=== PATIENT | male | born 1940 | race Caucasian/White ===

== ENCOUNTER 2018-07-28 12:40 | Observation (INO) | payer MEDICARE, OTHER ==
[~2018-07-28] VITALS: Ht 175.3 cm; Wt 95.5 kg
[~2018-07-28 12:40] MED LIST: AMLO-147 PO; ASPI-831 GTB; CARV25TA79 PO; CLOP75TA27 PO; DULO30CA47 PO; DUTA0.5C PO; FINA5TAB4 PO; FURO-110 PO; GLIP5TAB13 PO; ISOS30TA55 PO; LEVO25TA50 PO; LINA145C PO; LISI10TA2 PO; MELO7.5O PO; METF-849 PO; METO200T49 PO; ROSU20TA PO; SITA1TAB PO; TAMS0.4C2 PO; TERA10CA3 PO; TICA90TA PO
[2018-07-28] MEDS ORDERED: ONDANSETRON 4 MG INJ ONE (13:28)
[2018-07-28] MEDS ORDERED: morphine 4 MG/ML VIAL IV STA ×2 (13:28→15:04)
[2018-07-28] MEDS ORDERED: ONDANSETRON 4 MG INJ IV STA (13:28)
[2018-07-28] MEDS ORDERED: morphine 4 MG/ML VIAL ONE (13:29)
[2018-07-28] MEDS ORDERED: LISI-313 PO (14:01)
[2018-07-28] MEDS ORDERED: LORA10TA3 PO (14:01)
[2018-07-28] MEDS ORDERED: LEVO25TA50 PO (14:01)
[2018-07-28] MEDS ORDERED: SITA1TAB PO (14:01)
[2018-07-28] MEDS ORDERED: METO-336 PO (14:02)
[2018-07-28] MEDS ORDERED: MEMA10TA PO (14:02)
[2018-07-28] MEDS ORDERED: RANI150T5 PO (14:04)
[2018-07-28] MEDS ORDERED: EVOL140P SQ (14:04)
[2018-07-28] MEDS ORDERED: RANO10002 PO (14:05)
[2018-07-28] MEDS ORDERED: CALC1TAB93 PO (14:05)
[2018-07-28] MEDS ORDERED: OMEG1CAP2 PO (14:06)
[2018-07-28] MEDS ORDERED: NITR1PAT46 TD (14:07)
[2018-07-28] MEDS ORDERED: NITR0.4T39 SL (14:07)
[2018-07-28] MEDS ORDERED: ROSU10TA55 PO (14:08)
[2018-07-28] MEDS ORDERED: TOLT4CAP13 PO (14:09)
[2018-07-28] MEDS ORDERED: SPIR25TA PO (14:09)
[2018-07-28] MEDS ORDERED: CYCL1DRO BOTH EYES (14:19)
[2018-07-28] MEDS ORDERED: ASPI81TA52 PO (14:20)
[2018-07-28] MEDS ORDERED: AMLO-147 PO (14:20)
[2018-07-28] MEDS ORDERED: ATRO10DR BOTH EYES (14:22)
[2018-07-28] MEDS ORDERED: BENZ-5 PO (14:23)
[2018-07-28] MEDS ORDERED: TICA90TA PO (14:24)
[2018-07-28] MEDS ORDERED: LIPA1CAP45 PO (14:25)
[2018-07-28] MEDS ORDERED: CELE200C PO (14:25)
[2018-07-28] MEDS ORDERED: DOCU-103 PO (14:26)
[2018-07-28] MEDS ORDERED: EZET10TA31 PO (14:27)
[2018-07-28] MEDS ORDERED: ESOM40CA PO (14:27)
[2018-07-28] MEDS ORDERED: FURO-110 PO (14:28)
[2018-07-28] MEDS ORDERED: DAPA5TAB PO (14:28)
[2018-07-28] MEDS ORDERED: ISOS30TA67 PO (14:29)
[2018-07-28] MEDS ORDERED: GLIP5TAB13 PO (14:29)
[2018-07-28] MEDS ORDERED: ACETAMINOPHEN 325 MG TAB PO PRN ×2 (14:30→15:30)
[2018-07-28] MEDS ORDERED: AMIO200T4 PO (14:30)
[2018-07-28] MEDS ORDERED: POTA10TA37 PO (14:30)
[2018-07-28] MEDS ORDERED: ONDANSETRON 4 MG INJ IV PRN ×2 (14:30→15:30)
[2018-07-28] MEDS ORDERED: FINA5TAB4 PO (14:31)
[2018-07-28] MEDS ORDERED: TAMS0.4C2 PO (14:31)
--- NOTE | 2018-07-28 15:20 | HP ---
Date/Time of Note Date/Time of Note DATE: 07/28/18 TIME: 15:20 Assessment/Plan VTE Prophylaxis Pharmacological prophylaxis: heparin Lines/Catheters IV [facility]from [facility]): Saline Lock Assessment/Plan Hospital Course This is a 78-year-old male with comorbidities including CAD status post CABG with severe non-revascularizable CAD of the bypass grafts, ischemic cardiomyopathy, essential hypertension, pulmonary hypertension, dyslipidemia, diabetes mellitus type 2, prostatic hypertrophy, hypothyroidism, and COPD. The patient started having chest pain with the right upper extremity numbness with associated nausea. The patient will be admitted to inpatient setting. 1. Chest pain. -Will rule the patient out for ACS. -Trend troponins -Obtain 2D echocardiogram. -Obtain cardiology consult. 2. CAD with CABG with occluded grafts that are non-revascularizable. -Continue aggressive medical therapy. 3. Ischemic cardiomyopathy. Latest available 2D echocardiogram from [facility] showing ejection fraction of 25%. -Continue beta-blockers. -Hold MARÍA inhibitors because of worsening renal function. -Status post AICD placement. 4. Diabetes mellitus type 2. -Start the patient on sliding scale insulin along with pre-meal insulin and basal insulin. -Obtain hemoglobin A1c to evaluate the blood glucose control over the past few months. 5. COPD. -Continue the patient on inhaled bronchodilators. 6. Hypertension. -Resume antihypertensives. -Hold MARÍA inhibitors because of worsening renal function. 7. MICHAEL. -Nonoliguric. -Etiology unclear. -Hold nephrotoxic medications. 8. Prostatic hypertrophy. -Resume finasteride and tamsulosin. 9. Dyslipidemia. -Resume statins and Zetia. Plan: The patient will be admitted to inpatient telemetry floor. The patient will be started on a carbohydrate controlled diet. The patient will be started on DVT prophylaxis. The patient will remain a full code. Activities will be as tolerated. The rest of the patient's management will be based on the clinical course, inputs from consultants, and the results of diagnostic studies. Based on the patient's clinical presentation, he most probably requires at least 2 midnights stay for further management and evaluation of his clinical presentation. The patient was seen in collaboration with Dr. Agarwal. Result Diagram: 07/28/18 1252 07/28/18 1252 Results 24hrs Laboratory Tests Test 07/28/18 12:52 White Blood Count 6.6 # Red Blood Count 4.70 # Hemoglobin 13.7 #L Hematocrit 42.3 # Mean Corpuscular Volume 90.0 Mean Corpuscular Hemoglobin 29.1 Mean Corpuscular Hemoglobin Concent 32.4 Red Cell Distribution Width 15.0 H Platelet Count 153 Mean Platelet Volume 11.2 H Immature Granulocytes % 0.600 H Neutrophils % 72.6 Lymphocytes % 17.2 Monocytes % 7.9 Eosinophils % 0.9 Basophils % 0.8 Nucleated Red Blood Cells % 0.0 Immature Granulocytes # 0.040 H Neutrophils # 4.8 Lymphocytes # 1.1 Monocytes # 0.5 Eosinophils # 0.1 Basophils # 0.1 Nucleated Red Blood Cells # 0.0 Sodium Level 137 Potassium Level 4.4 Chloride Level 103 Carbon Dioxide Level 22 Anion Gap 12 Blood Urea Nitrogen 24 H Creatinine 1.53 H Est Glomerular Filtrat Rate mL/min Glucose Level 290 H Calcium Level 9.5 Troponin I < 0.012 HPI/ROS Admit Date/Time Admit Date/Time Hx of Present Illness This is a 78-year-old male with comorbidities including CAD status post CABG with severe non-revascularizable CAD of the bypass grafts, ischemic cardiomyopathy, essential hypertension, pulmonary hypertension, dyslipidemia, diabetes mellitus type 2, prostatic hypertrophy, hypothyroidism, and COPD. The patient started having chest pain with right upper extremity numbness with associated nausea. Therefore, the patient called the paramedics. The patient denied any dyspnea. The patient verbalized that he has been compliant with all his medications. The patient denied any cough. The patient denied any fevers or chills. The patient denied any syncope or presyncope. In the emergency room, the patient's troponins were negative. The patient was noticed to have a AK I with a BUN and creatinine of 24 and 1.53 respectively. The patient was given morphine for pain control in the emergency room. The patient was given aspirin by the paramedics. ROS Constitutional: no complaints Eyes: no complaints ENT: no complaints Respiratory: no complaints Cardiovascular: chest pain Gastrointestinal: nausea Genitourinary: no complaints Musculoskeletal: no complaints Skin: no complaints Neurologic: no complaints Endocrine: no complaints Lymphatic: no complaints Psychological: no complaints Immunologic: no complaints PMH/Family/Social Past Medical History 1. CAD. 2. Dyslipidemia. 3. Diabetes mellitus type 2. 4. Prostatic hypertrophy. 5. Hypothyroidism. 6. COPD. 7. Left eye blindness. 8. Obesity. Medications Current Medications Ondansetron HCl (Zofran Inj) 4 mg ER BRIDGE PRN IV NAUSEA AND/OR VOMITING; Start 07/28/18 at 14:30; Stop 07/29/18 at 14:29 Acetaminophen (Tylenol Tab) 650 mg ER BRIDGE PRN PO MILD PAIN(1-3)OR ELEVATED TEMP; Start 07/28/18 at 14:30; Stop 07/29/18 at 14:29 Coded Allergies: No Known Allergy (Unverified , 07/28/18) Past Surgical History Past Surgical Hx: coronary bypass surgery Social History Lives at home. Alcohol Use: none Smoking Status: Former smoker Drug Use: none Exam/Review of Systems Vital Signs Vitals Vital Signs Date Temp Pulse Resp B/P (MAP) Pulse Ox O2 O2 Flow FiO2 Time Delivery Rate 07/28/18 98.1 79 17 129/75 98 Nasal 2.0 14:59 (93) Cannula Exam Exam General: Adequately build 78 year-old male lying in bed in no apparent distress. HEENT: Normocephalic, atraumatic. Eyes: Anicteric sclerae, conjunctivae clear. ENT: Nasal septum midline, oral mucosa moist. Neck supple, JVD noticed. Respiratory: Bilaterally diminished breath sounds. No use of accessory muscles of respiration. Expiratory wheezing. Cardiovascular: S1, S2 heard. Regular rate and rhythm. Abdomen: Soft, nontender, and nondistended. Bowel sounds positive in all 4 quadrants. Genitourinary: Deferred. Extremities: No cyanosis, no clubbing, no edema. Peripheral pulses palpable. Neurologic: Cranial nerves II through XII grossly intact. The patient is awake, alert, and oriented. Skin: Normal skin turgor. No skin rashes. Additional Comments CXR IMPRESSION: Mild cardiomegaly with mild central pulmonary vascular congestion. Stable postsurgical changes of a CABG and left biventricular AICD. MAGY WATTS NP Jul 28, 2018 15:20
[2018-07-28] MEDS ORDERED: morphine 2 MG INJ IV PRN (15:30)
[2018-07-28] MEDS ORDERED: HYDROCODONE/APAP (5/325) TAB PO PRN (15:30)
[2018-07-28] MEDS ORDERED: NACL 0.9% 3 ML SYG IV SCH (15:30)
--- NOTE | 2018-07-28 15:57 | ERD ---
ER Documentation Chief Complaint Chief Complaint CHEST PAIN TODAY, NO SOB HPI Patient is a 78-year-old male with significant cardiac history who presents with chest pain. The symptoms started today and he went to an urgent care. He was brought in by ambulance. He came from the urgent care via ambulance. He was given aspirin and nitroglycerin. Pain went from an 8 out of 10 to a 6 out of 10. ROS All systems reviewed and are negative except as per history of present illness. Medications Home Meds Reported Medications Tamsulosin Hcl* (Tamsulosin Hcl*) 0.4 Mg Cap.er.24h, 0.4 MG PO HS, CAP 07/28/18 Finasteride* (Finasteride*) 5 Mg Tablet, 5 MG PO DAILY, TAB 07/28/18 Potassium Chloride* (K-Dur*) 10 Meq Tab.prt.sr, 10 MEQ PO DAILY, TAB 07/28/18 Amiodarone Hcl* (Amiodarone Hcl*) 200 Mg Tablet, 200 MG PO DAILY, #30 TAB 07/28/18 Isosorbide Mononitrate* (Isosorbide Mononitrate*) 30 Mg Tab.er.24h, 30 MG PO BID, TAB 07/28/18 Glipizide* (Glipizide*) 5 Mg Tablet, 5 MG PO BID, TAB 07/28/18 Furosemide* (Lasix*) 20 Mg Tablet, 20 MG PO DAILY, TAB 07/28/18 Dapagliflozin Propanediol (Farxiga) 5 Mg Tablet, 5 MG PO DAILY, #30 TAB 07/28/18 Ezetimibe* (Zetia*) 10 Mg Tablet, 10 MG PO HS, TAB 07/28/18 Esomeprazole Mag Trihydrate (Nexium) 40 Mg Capsule.dr, 40 MG PO DAILY, #30 CAP 07/28/18 Docusate Sodium (Docusil) 100 Mg Capsule, 100 MG PO BID, #60 CAP 07/28/18 Tgwwkg-Nevoyimm-Sjwzcxd* (Alida MOLINA* 36,000) 36,000 L-114,000-180,000 Unit Capsule., 1 CAP PO WITH MEALS, CAP 07/28/18 Celecoxib* (Celebrex*) 200 Mg Capsule, 200 MG PO DAILY, CAP 07/28/18 Ticagrelor* (Brilinta*) 90 Mg Tablet, 90 MG PO Q12, TAB 07/28/18 Benzonatate* (Benzonatate*) 100 Mg Capsule, 100 MG PO TID PRN for COUGH, CAP 07/28/18 Atropine Sulfate/0.9 %Sod Chlr (Atropine 0.01%-Ns Eye Drops) 10 Ml Drops, 1 DRP BOTH EYES BID, BOTTLE 07/28/18 Aspirin (Low Dose Aspirin) 81 Mg Tablet.dr, 81 MG PO DAILY, #30 TAB 07/28/18 Amlodipine Besylate* (Amlodipine Besylate*) 10 Mg Tablet, 10 MG PO DAILY, #30 TAB 07/28/18 Cyclosporine (RESTASIS) 1 Each Droperette, 1 DROP BOTH EYES Q12, #1 BOX 07/28/18 Tolterodine Tartrate* (Tolterodine Tartrate* ER) 4 Mg Cap.er.24h, 4 MG PO DAILY, #30 CAP 07/28/18 Spironolactone* (Aldactone*) 25 Mg Tablet, 25 MG PO DAILY, #30 TAB 07/28/18 Rosuvastatin Calcium* (Crestor*) 10 Mg Tablet, 10 MG PO QHS, #30 TAB 07/28/18 Nitroglycerin* (Nitrostat*) 0.4 Mg Tab.subl, 0.4 MG SL Q5MIN PRN for CHEST PAIN, BOTTLE 07/28/18 Nitroglycerin* (Nitroglycerin* Patch) 0.1 mg/hr Patch, 1 PATCH TD DAILY, PATCH 12 HOURS ON 12 HOURS OFF 07/28/18 [place]-3 Acid Ethyl Esters (Lovaza) 1 Gm Capsule, 2 GM PO BID, CAP 07/28/18 Calcium Carbonate/Vitamin D3 (OYSTER SHELL 500 MG + VIT D TB) 1 Each Tablet, 1 EACH PO BID, TAB 07/28/18 Ranolazine* (Ranexa*) 1,000 Mg Tab.sr.12h, 1000 MG PO Q12, TAB 07/28/18 Ranitidine Hcl* (Ranitidine Hcl*) 150 Mg Tablet, 150 MG PO HS, #30 TAB 07/28/18 Evolocumab (Repatha Sureclick) 140 Mg/1 Ml Pen.injctr, 140 MG SQ EVERY 14 DAYS 07/28/18 Metoprolol Succinate* (Toprol XL*) 100 Mg Tab.sr.24h, 100 MG PO DAILY, #30 TAB 07/28/18 Memantine* (Namenda*) 10 Mg Tablet, 10 MG PO BID, #60 TAB 07/28/18 Loratadine* (Loratadine*) 10 Mg Tablet, 10 MG PO DAILY, #30 TAB 07/28/18 Lisinopril* (Lisinopril*) 5 Mg Tablet, 5 MG PO DAILY, #30 TAB 07/28/18 Levothyroxine Sodium* (Levoxyl*) 25 Mcg Tablet, 25 MCG PO BEFORE BREAKFAST, #30 TAB 07/28/18 Sitagliptin Phos/Metformin HCl (Janumet 50-500 mg Tablet) 1 Each Tablet, 1 EACH PO BID, TAB 07/28/18 Discontinued Reported Medications Linaclotide (LINZESS) 145 Mcg Capsule, 145 MCG PO DAILY, #30 CAP 03/21/16 Finasteride* (Finasteride*) 5 Mg Tablet, 5 MG PO DAILY, TAB 03/21/16 Duloxetine Hcl* (Duloxetine Hcl*) 30 Mg Capsule.dr, 30 MG PO DAILY, #30 CAP 03/21/16 Levothyroxine Sodium* (Levoxyl*) 25 Mcg Tablet, 25 MCG PO BEFORE BREAKFAST, #30 TAB 03/21/16 Glipizide* (Glipizide*) 5 Mg Tablet, 5 MG PO BID, TAB 03/21/16 Ticagrelor* (Brilinta*) 90 Mg Tablet, 90 MG PO Q12, TAB 03/21/16 Terazosin Hcl* (Terazosin Hcl*) 10 Mg Capsule, 10 MG PO HS, CAP 03/21/16 Lisinopril* (Lisinopril*) 10 Mg Tablet, 10 MG PO DAILY, #30 TAB 03/21/16 Furosemide* (Lasix*) 20 Mg Tablet, 20 MG PO DAILY, TAB 03/21/16 Meloxicam* (Meloxicam*) 7.5 Mg/5 Ml Oral.susp, 15 MG PO DAILY, #300 ML 03/21/16 Carvedilol* (Carvedilol*) 25 Mg Tablet, 25 MG PO BID, #60 TAB 03/21/16 Rosuvastatin Calcium* (Crestor*) 20 Mg Tablet, 20 MG PO QHS, #30 TAB 03/21/16 Sitagliptin Phos/Metformin HCl (Janumet 50-500 mg Tablet) 1 Each Tablet, 1 EACH PO BID, TAB 03/21/16 Metoprolol Succinate* (Toprol XL*) 200 Mg Tab.sr.24h, 200 MG PO DAILY, #30 TAB 03/21/16 Amlodipine Besylate* (Amlodipine Besylate*) 10 Mg Tablet, 10 MG PO DAILY, #30 TAB 03/21/16 Isosorbide Mononitrate (Isosorbide Mononitrate) 30 Mg Tab.sr.24h, 30 MG PO BID 11/27/12 Tamsulosin Hcl* (Tamsulosin Hcl*) 0.4 Mg Cap.er.24h, 0.4 MG PO DAILY 11/27/12 Dutasteride* (Avodart*) 0.5 Mg Capsule, 0.5 MG PO DAILY 11/27/12 Aspirin (Aspirin) 81 Mg Chew, 81 MG GTB 11/27/12 Clopidogrel Bisulfate (Clopidogrel) 75 Mg Tablet, 75 MG PO DAILY 11/27/12 Metformin* (Glucophage*) 500 Mg Tab, 500 MG PO 11/27/12 Allergies Allergies: Coded Allergies: No Known Allergy (Unverified , 07/28/18) PMhx/Soc History of Surgery: Yes (CABG, Heart Cath x7, left eye cataract sx) Anesthesia Reaction: No Hx Neurological Disorder: No Hx Respiratory Disorders: Yes (Bronchitis, PNA) Hx Cardiac Disorders: Yes (HTN, CAD, Cardiomegaly) Hx Psychiatric Problems: No Hx Miscellaneous Medical Probl: No Hx Alcohol Use: Yes (socially) Hx Substance Use: No Hx Tobacco Use: No Smoking Status: Never smoker FmHx Family History: coronary disease Physical Exam Vitals Vital Signs Date Temp Pulse Resp B/P (MAP) Pulse Ox O2 O2 Flow FiO2 Time Delivery Rate 07/28/18 98.1 79 17 129/75 98 Nasal 2.0 14:59 (93) Cannula 07/28/18 98.3 61 17 127/91 97 Room Air 13:24 (103) 07/28/18 Nasal 2 12:54 Cannula 07/28/18 98.3 90 17 125/82 97 12:49 (96) Physical Exam Const: No acute distress Head: Atraumatic Eyes: Normal Conjunctiva ENT: Normal External Ears, Nose and Mouth. Neck: Full range of motion. No meningismus. Resp: Clear to auscultation bilaterally Cardio: Regular rate and rhythm, no murmurs Abd: Soft, non tender, non distended. Normal bowel sounds Skin: No petechiae or rashes Back: No midline or flank tenderness Ext: No cyanosis, or edema Neur: Awake and alert Psych: Normal Mood and Affect Result Diagram: 07/28/18 1252 07/28/18 1252 Results 24 hrs Laboratory Tests Test 07/28/18 12:52 White Blood Count 6.6 10^3/ul Red Blood Count 4.70 10^6/ul Hemoglobin 13.7 g/dl Hematocrit 42.3 % Mean Corpuscular Volume 90.0 fl Mean Corpuscular Hemoglobin 29.1 pg Mean Corpuscular Hemoglobin Concent 32.4 g/dl Red Cell Distribution Width 15.0 % Platelet Count 153 10^3/UL Mean Platelet Volume 11.2 fl Immature Granulocytes % 0.600 % Neutrophils % 72.6 % Lymphocytes % 17.2 % Monocytes % 7.9 % Eosinophils % 0.9 % Basophils % 0.8 % Nucleated Red Blood Cells % 0.0 /100WBC Immature Granulocytes # 0.040 10^3/ul Neutrophils # 4.8 10^3/ul Lymphocytes # 1.1 10^3/ul Monocytes # 0.5 10^3/ul Eosinophils # 0.1 10^3/ul Basophils # 0.1 10^3/ul Nucleated Red Blood Cells # 0.0 10^3/ul Sodium Level 137 mmol/L Potassium Level 4.4 mmol/L Chloride Level 103 mmol/L Carbon Dioxide Level 22 mmol/L Anion Gap 12 Blood Urea Nitrogen 24 mg/dl Creatinine 1.53 mg/dl Est Glomerular Filtrat Rate mL/min mL/min Glucose Level 290 mg/dl Hemoglobin A1c 8.7 % Calcium Level 9.5 mg/dl Troponin I < 0.012 ng/ml Current Medications Medications Dose Sig/Rah Start Time Status Last (Trade) Ordered Route PRN Stop Time Admin Dose Reason Admin Morphine 4 mg ONCE STAT 07/28/18 DC 07/28/18 Sulfate IV 13:28 13:33 (morphine) 07/28/18 13:29 Ondansetron 4 mg ONCE STAT 07/28/18 DC 07/28/18 HCl (Zofran IV 13:28 13:33 Inj) 07/28/18 13:29 Ondansetron 4 mg STK-MED 07/28/18 DC HCl (Zofran ONCE .ROUTE 13:28 Inj) 07/28/18 13:29 Morphine 4 mg STK-MED 07/28/18 DC Sulfate ONCE .ROUTE 13:29 (morphine) 07/28/18 13:30 Ondansetron 4 mg ER BRIDGE 07/28/18 DC HCl (Zofran PRN IV 14:30 Inj) NAUSEA AND/OR 07/28/18 15:40 VOMITING 650 mg ER BRIDGE 07/28/18 DC Acetaminophen PRN PO MILD 14:30 (Tylenol PAIN(1-3)OR 07/28/18 15:40 Tab) ELEVATED TEMP Morphine 4 mg ONCE STAT 07/28/18 DC 07/28/18 Sulfate IV 15:04 15:34 (morphine) 07/28/18 15:05 IV Flush 3 ml PER 07/28/18 (NS 3 ml) PROTOCOL IV 15:30 Ondansetron 4 mg Q6H PRN 07/28/18 HCl (Zofran IV NAUSEA 15:30 Inj) AND/OR VOMITING Aspirin 81 mg DAILY PO 07/29/18 (Aspirin) 09:00 650 mg Q6H PRN 07/28/18 Acetaminophen PO PAIN 15:30 (Tylenol LEVEL 1-3 OR Tab) FEVER 1 tab Q6H PRN 07/28/18 Acetaminophen PO PAIN 15:30 / LEVEL 4-6 Hydrocodone Bitart ([place] (5/325)) Morphine 2 mg Q4H PRN 07/28/18 Sulfate IV PAIN 15:30 (morphine) LEVEL 7-10 Heparin 5,000 unit Q8 SC 07/28/18 Sodium 22:00 (Porcine) (Heparin (5000 Units/1ml)) Amiodarone 200 mg DAILY PO 07/29/18 HCl 09:00 (Cordarone) Amlodipine 10 mg DAILY PO 07/29/18 Besylate 09:00 (Norvasc) Aspirin 81 mg DAILY PO 07/29/18 UNV (Halfprin) 09:00 1 drop Q12 BOTH 07/28/18 Cyclosporine EYES 21:00 (Restasis) Docusate 100 mg BID PO 07/28/18 Sodium 21:00 (Colace) EZETIMIBE 10 mg HS PO 07/28/18 (Zetia) 21:00 Finasteride 5 mg DAILY PO 07/29/18 (Proscar) 09:00 Isosorbide 30 mg BID PO 07/28/18 Mononitrate 21:00 (Imdur) 25 mcg BEFORE 07/29/18 Levothyroxine BREAKFAST 07:00 Sodium PO (Synthroid) Lisinopril 5 mg DAILY PO 07/29/18 DC (Zestril) 09:00 07/29/18 09:00 Loratadine 10 mg DAILY PO 07/29/18 (Claritin) 09:00 Memantine 10 mg BID PO 07/28/18 (Namenda) 21:00 Metoprolol 100 mg DAILY PO 07/29/18 Succinate 09:00 (Toprol Xl) Ranolazine 1,000 mg Q12 PO 07/28/18 (Ranexa) 21:00 Tamsulosin 0.4 mg HS PO 07/28/18 HCl 21:00 (Flomax) Ticagrelor 90 mg Q12 PO 07/28/18 (Brilinta) 21:00 Tolterodine 4 mg DAILY PO 07/29/18 Tartrate 09:00 (Detrol La) Discontinue ONCE ONCE 07/28/18 DC Miscellaneous current oral XX 16:00 sulfonylur... 07/28/18 16:01 Information (* Miscellaneous Pharmacy Order) Insulin 14 units DAILY@199907/28/18 Glargine SC 20:00 (Lantus) Insulin 5 unit WITH MEALS 07/28/18 Aspart SC 18:00 (Novolog Insulin Pen) ONCE ONCE 07/28/18 DC Miscellaneous HYPOGLYCEMIA XX 16:00 PROTOCOL 07/28/18 16:01 Information w... (* Miscellaneous Pharmacy Order) Insulin NOVOLOG WITH MEALS 07/28/18 Aspart *MILD* BEDTIME SC 18:00 (Novolog ALGORITHM Insulin Pen) Albuterol/ 3 ml Q6HWA RESP 07/28/18 Ipratropium THERAPY HHN 20:00 (Duoneb) Albuterol/ 3 ml Q2H RESP 07/28/18 Ipratropium THERAPY PRN 16:00 (Duoneb) HHN SHORTNESS OF BREATH 1 ea NOTE XX 07/28/18 Miscellaneous 16:00 Information Glucose 15 gm Q15M PRN 07/28/18 (Glutose) PO DECREASED 16:00 GLUCOSE Glucose 22.5 gm Q15M PRN 07/28/18 (Glutose) PO DECREASED 16:00 GLUCOSE Dextrose 25 ml Q15M PRN 07/28/18 (D50w IV DECREASED 16:00 Syringe) GLUCOSE Dextrose 50 ml Q15M PRN 07/28/18 (D50w IV DECREASED 16:00 Syringe) GLUCOSE Glucagon 1 mg Q15M PRN 07/28/18 (Glucagen) IM DECREASED 16:00 GLUCOSE Glucose 15 gm Q15M PRN 07/28/18 (Glutose) BUCCAL 16:00 DECREASED GLUCOSE Procedures/MDM EKG read by me: Rate/Rhythm: Paced rhythm at a rate of 85 Intervals: Normal Impression: Paced rhythm with negative Sgarbossa criteria Chest x-ray read by radiology. Patient is a 78-year-old male with significant cardiac history who presents with chest pain. I am concerned for possible acute coronary syndrome. I doubt pneumonia, pneumothorax, pulmonary embolism, or aortic dissection. The patient will be admitted to the care of Dr. Agarwal from the panel team. The patient will be admitted to a telemetry observation bed. Departure Diagnosis: Primary Impression: Chest pain Chest pain type: unspecified Qualified Codes: R07.9 - Chest pain, unspecified Condition: RAE Mcnair MD Jul 28, 2018 15:57
[2018-07-28] MEDS ORDERED: DEXTROSE 50% 50 ML SYRINGE IV PRN ×2 (16:00)
[2018-07-28] MEDS ORDERED: GLUCAGON 1 MG INJ IM PRN (16:00)
[2018-07-28] MEDS ORDERED: GLUCOSE GEL 15 GRAM TUBE BUCCAL PRN (16:00)
[2018-07-28] MEDS ORDERED: GLUCOSE GEL 15 GRAM TUBE PO PRN ×2 (16:00)
[2018-07-28] MEDS ORDERED: ALBUTEROL/IPRATROPIUM (NEB) 3 ML AMP HHN PRN (16:00)
[2018-07-28 17:45] VITALS: PULSE 81
[2018-07-28 17:56] VITALS: Ht 175.3 cm; Wt 95.5 kg
[2018-07-28] MEDS: INSULIN ASPART [NOVOLOG] 3 ML PEN SC SCH ×3 (18:06→23:33)
[2018-07-28 18:12] VITALS: BP 112/71; PULSE 81; RESP 18
[2018-07-28] MEDS: morphine 4 MG/ML VIAL IV PRN (19:57)
[2018-07-28 20:00] VITALS: PULSE 81
[2018-07-28] MEDS ORDERED: INSULIN GLARGINE [LANTus] (100 UNITS/ML) SYG SC SCH (20:00)
[2018-07-28 20:06] VITALS: BP 135/78; PULSE 82; RESP 18
[2018-07-28] MEDS ORDERED: TAMSULOSIN (SR) 0.4 MG CAP PO SCH (21:00)
[2018-07-28] MEDS: RANOLAZINE (SR) 500 MG TAB PO SCH ×2 (21:00→21:41)
[2018-07-28] MEDS: EZETIMIBE 10 MG TAB PO SCH ×2 (21:00→21:40)
[2018-07-28] MEDS: DOCUSATE SODIUM 100 MG CAP PO SCH (21:40)
[2018-07-28] MEDS: MEMANTINE 10 MG TAB PO SCH (21:41)
[2018-07-28] MEDS: ISOSORBIDE MONONITRATE(SR)30 MG TAB PO SCH (21:41)
[2018-07-28] MEDS: TICAGRELOR 90 MG TABLET PO SCH (21:46)
[2018-07-28] MEDS ORDERED: HEPARIN 5,000 UNIT/1 ML VIAL SC SCH (22:00)
[2018-07-28] MEDS: CYCLOSPORINE 0.05% OPH DROPERETTE BOTH EYES SCH (22:21)
--- NOTE | 2018-07-28 22:34 | NUR ---
Pharmacy had delivered the Lantus and Restasis I had ordered but did not bring Novolog insulin. I called and spoke with [facility] and he said they would bring it up.
[2018-07-28] MEDS: ALBUTEROL/IPRATROPIUM (NEB) 3 ML AMP HHN SCH (22:50)
[2018-07-28 23:42] VITALS: BP 119/68; PULSE 79; RESP 18
[2018-07-29] VITALS: PULSE 76
[2018-07-29] MEDS ORDERED: ENOXAPARIN 100 MG/ML SYG SC SCH (02:30)
[2018-07-29 04:00] VITALS: PULSE 74
[2018-07-29 04:07] VITALS: BP 100/55; PULSE 71; RESP 18
[2018-07-29] MEDS ORDERED: LEVOTHYROXINE 25 MCG TAB PO SCH (07:00)
[2018-07-29 07:17] VITALS: BP 103/57; PULSE 77; RESP 16
--- NOTE | 2018-07-29 07:21 | NUR ---
EOSS: Third and fourth troponin positive and trending up. Patient denies any chest pain. No SOB. Notified Dr. Jarrett and change Heparin SC to Lovenox 95 mg SC and given. Remains on Paced, AV paced, underlying SR with PVC's. Endorsed to day nurse.
[2018-07-29] MEDS: INSULIN ASPART [NOVOLOG] 3 ML PEN SC SCH ×2 (07:35→07:36)
[2018-07-29 08:00] VITALS: PULSE 76
[2018-07-29] MEDS: CYCLOSPORINE 0.05% OPH DROPERETTE BOTH EYES SCH (08:31)
[2018-07-29] MEDS: DOCUSATE SODIUM 100 MG CAP PO SCH (08:31)
[2018-07-29] MEDS: TICAGRELOR 90 MG TABLET PO SCH (08:33)
[2018-07-29] MEDS: MEMANTINE 10 MG TAB PO SCH (08:33)
[2018-07-29] MEDS: ISOSORBIDE MONONITRATE(SR)30 MG TAB PO SCH (08:34)
[2018-07-29] MEDS: RANOLAZINE (SR) 500 MG TAB PO SCH (08:41)
[2018-07-29] MEDS: ALBUTEROL/IPRATROPIUM (NEB) 3 ML AMP HHN SCH (08:44)
[2018-07-29] MEDS ORDERED: AMLODIPINE 10 MG TAB PO SCH (09:00)
[2018-07-29] MEDS ORDERED: ASPIRIN (EC) 81 MG TAB PO SCH (09:00)
[2018-07-29] MEDS ORDERED: AMIODARONE 200 MG TAB PO SCH (09:00)
[2018-07-29] MEDS ORDERED: TOLTERODINE (SR) 4 MG CAP PO SCH (09:00)
[2018-07-29] MEDS ORDERED: ASPIRIN 81 MG TAB PO SCH (09:00)
[2018-07-29] MEDS ORDERED: LORATADINE 10 MG TAB PO SCH (09:00)
[2018-07-29] MEDS ORDERED: LISINOPRIL 5 MG TAB PO SCH (09:00)
[2018-07-29] MEDS ORDERED: METOPROLOL (XL) 100 MG TAB PO SCH (09:00)
[2018-07-29] MEDS ORDERED: FINASTERIDE 5 MG TAB PO SCH (09:00)
--- NOTE | 2018-07-29 09:15 | DS ---
Date/Time of Note Date/Time of Note DATE: 07/29/18 TIME: 09:12 Discharge Summary Admission/Discharge Info Admit Date/Time Jul 28, 2018 at 14:22 Discharge Date/Time Discharge Diagnosis 1. NSTEMI. 2. History of CAD with CABG with occluded grafts that are non-revascularizable. 3. Ischemic cardiomyopathy. 4. Diabetes mellitus type 2. 5. COPD. 6. Hypertension. 7. Acute kidney injury. 8. Prostatic hypertrophy. 9. Dyslipidemia. 10. Obesity. Patient Condition: Critical Consults 1. Bi Arellano MD, Cardiology. Procedures CXR IMPRESSION: Mild cardiomegaly with mild central pulmonary vascular congestion. Stable postsurgical changes of a CABG and left biventricular AICD. Hx of Present Illness This is a 78-year-old male with comorbidities including CAD status post CABG with severe non-revascularizable CAD of the bypass grafts, ischemic cardiomyopathy, essential hypertension, pulmonary hypertension, dyslipidemia, diabetes mellitus type 2, prostatic hypertrophy, hypothyroidism, and COPD. The patient started having chest pain with right upper extremity numbness with associated nausea. Therefore, the patient called the paramedics. The patient denied any dyspnea. The patient verbalized that he has been compliant with all his medications. The patient denied any cough. The patient denied any fevers or chills. The patient denied any syncope or presyncope. In the emergency room, the patient's troponins were negative. The patient was noticed to have a AK I with a BUN and creatinine of 24 and 1.53 respectively. The patient was given morphine for pain control in the emergency room. The patient was given aspirin by the paramedics. Hospital Course The patient was admitted to inpatient setting. Serial troponins were ordered. The patient's outpatient casino worker was informed about the patient's admission. A 2D echocardiogram was ordered. The patient's initial troponin was within normal limits. The patient started having elevation in troponin from the midnight of 07/29/2018 with a troponin as high as 1.25 on the morning of 07/29. Therefore, the patient was given a single dose of therapeutic Lovenox. The patient's casino worker was informed about the elevation in troponin. After conversation with the patient's casino worker, he wanted the patient to be transferred to [facility] for urgent left heart catheterization as the Loan Collector at [facility] is not fully functional. Therefore, arrangements were made to transfer this patient to [facility] at the earliest. The patient was kept n.p.o. after breakfast on 07/29/2018. The patient had underlying acute kidney injury although he had a normal renal function on his admission to [facility] in 2015. The patient's baseline creatinine is unknown at this time. The patient's MARÍA inhibitors were put on hold from the day of admission. The patient will be getting a single dose of p.o. Mucomyst 1200 mg before he will be transferred in anticipation for use of dye for left heart catheterization to prevent further kidney damage. The patient's chronic problems include ischemic cardiomyopathy with latest ejection fraction from the 2D echocardiogram done at [facility] in 2015 showing 25%. The patient was continued on beta-blockers. The patient also has history of cardiac arrhythmias. Therefore, the patient was maintained on amiodarone. MARÍA inhibitors were put on hold because of worsening renal function. The patient has underlying diabetes mellitus type 2. The patient's hemoglobin A1c was found to be 8.7. He was maintained on sliding scale insulin along with pre-meal insulin and basal insulin. The patient has underlying COPD. He was maintained on inhaled bronchodilators as he had evidence of some bronchospasms. He was maintained on beta-blockers for his hypertension. The patient has underlying prostatic hypertrophy. He was maintained on finasteride and tamsulosin. He was maintained on statins and Zetia for his underlying dyslipidemia and CAD. The patient had a stable hospital course. The patient needs urgent left heart catheterization and he needs to be transferred to [facility]. Therefore, arrangements are made for transferring this patient with ACLS and ICU team. The patient was informed about the plan of care. Approximately 50 Minutes was spent on coordinating discharge/transfer on this patient that included talking to the patient's casino worker and coordinating the care with the health care team. The patient was seen in collaboration with Dr. Agarwal. Home Meds Reported Medications Tamsulosin Hcl* (Tamsulosin Hcl*) 0.4 Mg Cap.er.24h, 0.4 MG PO HS, CAP 07/28/18 Finasteride* (Finasteride*) 5 Mg Tablet, 5 MG PO DAILY, TAB 07/28/18 Potassium Chloride* (K-Dur*) 10 Meq Tab.prt.sr, 10 MEQ PO DAILY, TAB 07/28/18 Amiodarone Hcl* (Amiodarone Hcl*) 200 Mg Tablet, 200 MG PO DAILY, #30 TAB 07/28/18 Isosorbide Mononitrate* (Isosorbide Mononitrate*) 30 Mg Tab.er.24h, 30 MG PO BID, TAB 07/28/18 Glipizide* (Glipizide*) 5 Mg Tablet, 5 MG PO BID, TAB 07/28/18 Furosemide* (Lasix*) 20 Mg Tablet, 20 MG PO DAILY, TAB 07/28/18 Dapagliflozin Propanediol (Farxiga) 5 Mg Tablet, 5 MG PO DAILY, #30 TAB 07/28/18 Ezetimibe* (Zetia*) 10 Mg Tablet, 10 MG PO HS, TAB 07/28/18 Esomeprazole Mag Trihydrate (Nexium) 40 Mg Capsule.dr, 40 MG PO DAILY, #30 CAP 07/28/18 Docusate Sodium (Docusil) 100 Mg Capsule, 100 MG PO BID, #60 CAP 07/28/18 Wjoyli-Ovucspwv-Wxuvmfy* (Alida MOLINA* 36,000) 36,000 L-114,000-180,000 Unit Capsule.dr, 1 CAP PO WITH MEALS, CAP 07/28/18 Celecoxib* (Celebrex*) 200 Mg Capsule, 200 MG PO DAILY, CAP 07/28/18 Ticagrelor* (Brilinta*) 90 Mg Tablet, 90 MG PO Q12, TAB 07/28/18 Benzonatate* (Benzonatate*) 100 Mg Capsule, 100 MG PO TID PRN for COUGH, CAP 07/28/18 Atropine Sulfate/0.9 %Sod Chlr (Atropine 0.01%-Ns Eye Drops) 10 Ml Drops, 1 DRP BOTH EYES BID, BOTTLE 07/28/18 Aspirin (Low Dose Aspirin) 81 Mg Tablet.dr, 81 MG PO DAILY, #30 TAB 07/28/18 Amlodipine Besylate* (Amlodipine Besylate*) 10 Mg Tablet, 10 MG PO DAILY, #30 TAB 07/28/18 Cyclosporine (RESTASIS) 1 Each Droperette, 1 DROP BOTH EYES Q12, #1 BOX 07/28/18 Tolterodine Tartrate* (Tolterodine Tartrate* ER) 4 Mg Cap.er.24h, 4 MG PO DAILY, #30 CAP 07/28/18 Spironolactone* (Aldactone*) 25 Mg Tablet, 25 MG PO DAILY, #30 TAB 07/28/18 Rosuvastatin Calcium* (Crestor*) 10 Mg Tablet, 10 MG PO QHS, #30 TAB 07/28/18 Nitroglycerin* (Nitrostat*) 0.4 Mg Tab.subl, 0.4 MG SL Q5MIN PRN for CHEST PAIN, BOTTLE 07/28/18 Nitroglycerin* (Nitroglycerin* Patch) 0.1 mg/hr Patch, 1 PATCH TD DAILY, PATCH 12 HOURS ON 12 HOURS OFF 07/28/18 Mullins-3 Acid Ethyl Esters (Lovaza) 1 Gm Capsule, 2 GM PO BID, CAP 07/28/18 Calcium Carbonate/Vitamin D3 (OYSTER SHELL 500 MG + VIT D TB) 1 Each Tablet, 1 EACH PO BID, TAB 07/28/18 Ranolazine* (Ranexa*) 1,000 Mg Tab.sr.12h, 1000 MG PO Q12, TAB 07/28/18 Ranitidine Hcl* (Ranitidine Hcl*) 150 Mg Tablet, 150 MG PO HS, #30 TAB 07/28/18 Evolocumab (Repatha Sureclick) 140 Mg/1 Ml Pen.injctr, 140 MG SQ EVERY 14 DAYS 07/28/18 Metoprolol Succinate* (Toprol XL*) 100 Mg Tab.sr.24h, 100 MG PO DAILY, #30 TAB 07/28/18 Memantine* (Namenda*) 10 Mg Tablet, 10 MG PO BID, #60 TAB 07/28/18 Loratadine* (Loratadine*) 10 Mg Tablet, 10 MG PO DAILY, #30 TAB 07/28/18 Lisinopril* (Lisinopril*) 5 Mg Tablet, 5 MG PO DAILY, #30 TAB 07/28/18 Levothyroxine Sodium* (Levoxyl*) 25 Mcg Tablet, 25 MCG PO BEFORE BREAKFAST, #30 TAB 07/28/18 Sitagliptin Phos/Metformin HCl (Janumet 50-500 mg Tablet) 1 Each Tablet, 1 EACH PO BID, TAB 07/28/18 Discontinued Reported Medications Linaclotide (LINZESS) 145 Mcg Capsule, 145 MCG PO DAILY, #30 CAP 03/21/16 Finasteride* (Finasteride*) 5 Mg Tablet, 5 MG PO DAILY, TAB 03/21/16 Duloxetine Hcl* (Duloxetine Hcl*) 30 Mg Capsule.dr, 30 MG PO DAILY, #30 CAP 03/21/16 Levothyroxine Sodium* (Levoxyl*) 25 Mcg Tablet, 25 MCG PO BEFORE BREAKFAST, #30 TAB 03/21/16 Glipizide* (Glipizide*) 5 Mg Tablet, 5 MG PO BID, TAB 03/21/16 Ticagrelor* (Brilinta*) 90 Mg Tablet, 90 MG PO Q12, TAB 03/21/16 Terazosin Hcl* (Terazosin Hcl*) 10 Mg Capsule, 10 MG PO HS, CAP 03/21/16 Lisinopril* (Lisinopril*) 10 Mg Tablet, 10 MG PO DAILY, #30 TAB 03/21/16 Furosemide* (Lasix*) 20 Mg Tablet, 20 MG PO DAILY, TAB 03/21/16 Meloxicam* (Meloxicam*) 7.5 Mg/5 Ml Oral.susp, 15 MG PO DAILY, #300 ML 03/21/16 Carvedilol* (Carvedilol*) 25 Mg Tablet, 25 MG PO BID, #60 TAB 03/21/16 Rosuvastatin Calcium* (Crestor*) 20 Mg Tablet, 20 MG PO QHS, #30 TAB 03/21/16 Sitagliptin Phos/Metformin HCl (Janumet 50-500 mg Tablet) 1 Each Tablet, 1 EACH PO BID, TAB 03/21/16 Metoprolol Succinate* (Toprol XL*) 200 Mg Tab.sr.24h, 200 MG PO DAILY, #30 TAB 03/21/16 Amlodipine Besylate* (Amlodipine Besylate*) 10 Mg Tablet, 10 MG PO DAILY, #30 TAB 03/21/16 Isosorbide Mononitrate (Isosorbide Mononitrate) 30 Mg Tab.sr.24h, 30 MG PO BID 11/27/12 Tamsulosin Hcl* (Tamsulosin Hcl*) 0.4 Mg Cap.er.24h, 0.4 MG PO DAILY 11/27/12 Dutasteride* (Avodart*) 0.5 Mg Capsule, 0.5 MG PO DAILY 11/27/12 Aspirin (Aspirin) 81 Mg Chew, 81 MG GTB 11/27/12 Clopidogrel Bisulfate (Clopidogrel) 75 Mg Tablet, 75 MG PO DAILY 11/27/12 Metformin* (Glucophage*) 500 Mg Tab, 500 MG PO 11/27/12 Follow-up Plan The patient being transferred to [facility] for left heart catheterizati on. Primary Care Provider Not On Staff Doctor Time spent on discharge: > 30 minutes Pending Labs Laboratory Tests Test 07/28/18 12:52 07/28/18 18:00 07/28/18 18:36 07/28/18 21:55 White Blood 6.6 Count 10^3/ul (4.8-10 .8) Red Blood 4.70 Count 10^6/ul (4.70-6 .10) Hemoglobin 13.7 g/dl (14.0-18.0 ) Hematocrit 42.3 % (42.0-52.0) Mean 90.0 Corpuscular fl (82.0-101.0) Volume Mean 29.1 Corpuscular pg (29.0-33.0) Hemoglobin Mean 32.4 Corpuscular g/dl (32.0-37.0 Hemoglobin Conc ) ent Red Cell 15.0 Distribution % (11.5-14.5) Width Platelet Count 153 10^3/UL (140-41 5) Mean Platelet 11.2 Volume fl (7.4-10.4) Immature 0.600 Granulocytes % % (0.001-0.429) Neutrophils % 72.6 % (39.0-77.0) Lymphocytes % 17.2 % (15.0-51.0) Monocytes % 7.9 % (0.0-11.0) Eosinophils % 0.9 % (0.0-7.0) Basophils % 0.8 % (0.0-2.0) Nucleated Red 0.0 Blood Cells % /100WBC (0.0-0. 0) Immature 0.040 Granulocytes # 10^3/ul (0.0-0. 031) Neutrophils # 4.8 10^3/ul (1.6-7. 5) Lymphocytes # 1.1 10^3/ul (0.8-2. 9) Monocytes # 0.5 10^3/ul (0.3-0. 9) Eosinophils # 0.1 10^3/ul (0.0-0. 5) Basophils # 0.1 10^3/ul (0.0-0. 1) Nucleated Red 0.0 Blood Cells # 10^3/ul (0.0-0. 0) Sodium Level 137 mmol/L (135-144 ) Potassium 4.4 Level mmol/L (3.5-5.1 ) Chloride Level 103 mmol/L (97-110) Carbon Dioxide 22 Level mmol/L (21-31) Anion Gap 12 (5-13) Blood Urea 24 mg/dl (7-20) Nitrogen Creatinine 1.53 mg/dl (0.61-1.2 4) Est Glomerular mL/min (>60) Filtrat Rate mL/min Glucose Level 290 mg/dl (70-220) Hemoglobin A1c 8.7 % (0-5.9) Calcium Level 9.5 mg/dl (8.4-10.2 ) Troponin I < 0.012 0.073 ng/ml (0.000-0. ng/ml (0.000-0 120) .120) B-Type 2210 Natriuretic PG/ML (0-450) Peptide Thyroid 15.500 Stimulating MIU/L (0.465-4. Hormone (TSH) 680) Free Thyroxine 0.73 ng/dl (0.78-2.4 4) Bedside 177 208 Glucose mg/dL (70-220) mg/dL (70-220) Creatine 92 Kinase IU/L (23-200) Creatine Kinase 3.6 Index Creatinine 3.31 Kinase MB ng/ml (0.0-2.4 (Mass) ) Test 07/29/18 00:41 07/29/18 01:40 07/29/18 05:03 07/29/18 05:04 Creatine 127 175 Kinase IU/L (23-200) IU/L (23-200) Creatine Kinase 10.9 10.7 Index Creatinine 13.80 18.80 Kinase MB ng/ml (0.0-2.4) ng/ml (0.0-2.4 (Mass) ) Troponin I 0.421 1.250 ng/ml (0.000-0. ng/ml (0.000-0 120) .120) Bedside 231 Glucose mg/dL (70-220) Prothrombin 13.3 Time Sec (11.9-14.9 ) Prothrombin 1.0 Time Ratio INR 1.00 International Normalized Rati o Activated 67.9 Partial Thrombo Sec (23.0-35.0 plast Time ) White Blood 5.7 Count 10^3/ul (4.8-1 0.8) Red Blood 4.46 Count 10^6/ul (4.70- 6.10) Hemoglobin 13.2 g/dl (14.0-18. 0) Hematocrit 41.1 % (42.0-52.0) Mean 92.2 Corpuscular fl (82.0-101.0 Volume ) Mean 29.6 Corpuscular pg (29.0-33.0) Hemoglobin Mean 32.1 Corpuscular g/dl (32.0-37. Hemoglobin Conc 0) ent Red Cell 15.1 Distribution % (11.5-14.5) Width Platelet Count 130 10^3/UL (140-4 15) Mean Platelet 11.4 Volume fl (7.4-10.4) Immature 1.100 Granulocytes % % (0.001-0.429 ) Neutrophils % 58.3 % (39.0-77.0) Lymphocytes % 29.0 % (15.0-51.0) Monocytes % 9.3 % (0.0-11.0) Eosinophils % 1.6 % (0.0-7.0) Basophils % 0.7 % (0.0-2.0) Nucleated Red 0.0 Blood Cells % /100WBC (0.0-0 .0) Immature 0.060 Granulocytes # 10^3/ul (0.0-0 .031) Neutrophils # 3.3 10^3/ul (1.6-7 .5) Lymphocytes # 1.7 10^3/ul (0.8-2 .9) Monocytes # 0.5 10^3/ul (0.3-0 .9) Eosinophils # 0.1 10^3/ul (0.0-0 .5) Basophils # 0.0 10^3/ul (0.0-0 .1) Nucleated Red 0.0 Blood Cells # 10^3/ul (0.0-0 .0) Sodium Level 139 mmol/L (135-14 4) Potassium 4.8 Level mmol/L (3.5-5. 1) Chloride Level 103 mmol/L (97-110 ) Carbon Dioxide 26 Level mmol/L (21-31) Anion Gap 10 (5-13) Blood Urea 23 Nitrogen mg/dl (7-20) Creatinine 1.47 mg/dl (0.61-1. 24) Est Glomerular mL/min (>60) Filtrat Rate mL/min Glucose Level 198 mg/dl (70-220) Calcium Level 9.2 mg/dl (8.4-10. 2) Test 07/29/18 07:29 Bedside 195 Glucose mg/dL (70-220) MAGY WATTS NP Jul 29, 2018 09:15
[2018-07-29] MEDS ORDERED: ACETYLCYSTEINE 600 MG CAP PO ONE (09:30)
[2018-07-29] MEDS ORDERED: SOD CHLORIDE 0.9% 1,000 ML IV SCH (09:30)
[2018-07-29] MEDS: morphine 4 MG/ML VIAL IV PRN (09:55)
--- NOTE | 2018-07-29 10:06 | NUR ---
CM NOTE ORDER RECEIVED TO TRANSFER PT TO [facility] Address: [address] [place] [address] FOR HEART CATH, THIS CM CALLED AND S/W YURIDIA [phone] AND PER YURIDIA PT IS ACCEPTED AND AMBULANCE ARRANGED BY YURIDIA FOR [address] SERVICE TECHNICIAN AND TAVARES MACK IS AWARE, CM ALSO UPDATED AMPLIFIER MECHANIC STEFANIE Hernandez.
[2018-07-29 10:38] VITALS: BP 110/64; PULSE 86; RESP 20
--- NOTE | 2018-07-29 11:06 | NUR ---
patient discharged from [facility] to go to [facility].report given to nurse in [place].patient kept npo and iv NS at 40 cc/hr in progress.medicated earlier for pain to chest 3-10/15 and now 0-07/17.placed on o2 at 2 li nc.family made aware of the transfer.heplock on the left ac where iv fluid is running at 40 cc/hr.report given to ems team.
--- NOTE | 2018-07-29 22:18 | RADRPT ---
Echocardiogram Report Patient Name: SOLEDAD NAVA Gender: Male Date: 1940 Study Date: 29-Jul-2018 Marine Steward: César Sibley [facility] Location: [id number] Ref. Physician: MAGY WATTS Quality: Technically Difficult Study Procedures: Transthoracic echocardiogram with complete 2D, M-Mode, and doppler examination. Indications: Chest Pain. 2D/M Mode Doppler Measurement Value Normal Ranges Measurement Value Normal Ranges LVIDd 2D 6.1 3.5 - 5.6 cm AV Peak James 1.1 m/sec LVIDs 2D 5.8 2.1 - 4.1 cm AV Peak PG 5.0 mmHg LVPWd 2D 0.9 0.6 - 1.1 cm LVOT Peak James 0.6 m/sec IVSd 2D 0.9 0.6 - 1.1 cm LVOT Peak PG 1.0 mmHg AoR Diam 2D 3.2 2.0 - 3.7 cm LA/Ao 2D 1 0 - 1 LA Dimen 2D 3.7 2.3 - 4.0 cm Findings Left Ventricle: Normal left ventricular wall thickness. Mild enlargement of left ventricle cavity. Severe global left ventricular systolic dysfunction. Ejection fraction is visually estimated at 25 %. Right Ventricle: Normal right ventricular size. Normal right ventricular systolic function. Linear artifact in right ventricle suggestive of catheter, pacer lead, or ICD lead. Left Atrium: The left atrium is normal in size. Right Atrium: The right atrium is normal in size. Mitral Valve: Mitral valve leaflets appear mildly thickened. Moderate mitral annular calcification. Trace mitral regurgitation. Aortic Valve: No significant aortic stenosis or insufficiency. Aortic cusps appear mildly calcified. Tricuspid Valve: Normal appearance of the tricuspid valve. Unable to obtain RVSP due to minimal presence of tricuspid regurgitation. Pulmonic Valve: Pulmonic valve not well visualized. Pericardium: Trivial pericardial effusion. Aorta: Normal aortic root. IVC: Normal size and normal respiratory collapse consistent with normal right atrial pressure. Conclusions Normal left ventricular wall thickness. Mild enlargement of left ventricle cavity. Severe global left ventricular systolic dysfunction. Ejection fraction is visually estimated at 25 %. Mitral valve leaflets appear mildly thickened. Moderate mitral annular calcification. Trace mitral regurgitation. No significant aortic stenosis or insufficiency. Aortic cusps appear mildly calcified. Normal appearance of the tricuspid valve. Unable to obtain RVSP due to minimal presence of tricuspid regurgitation. Trivial pericardial effusion VS thickening. Electronically Signed By: Adeel Villa 29-Jul-2018 22:16:53 -0800 Patient Name: SOLEDAD NAVA Study Date: 29-Jul-[id number]
== END 2018-07-29 11:13 | disposition other institution (70) ==
LOC: E/R 12:40 → 6WM 14:22
PROVIDERS: ADMIT Internal Medicine; ATTEND Internal Medicine
DX: I21.4 Non-ST elevation (NSTEMI) myocardial infarction (principal); I25.10 Atherosclerotic heart disease of native coronary artery without angina pectoris; E11.9 Type 2 diabetes mellitus without complications; I10 Essential (primary) hypertension; E78.5 Hyperlipidemia, unspecified; N40.0 Benign prostatic hyperplasia without lower urinary tract symptoms; I25.5 Ischemic cardiomyopathy; I27.20 Pulmonary hypertension, unspecified; E03.9 Hypothyroidism, unspecified; J44.9 Chronic obstructive pulmonary disease, unspecified
CPT/HCPCS: 36415; 71045; 80048; 82550; 82553; 82962; 83036; 83880; 84439; 84443; 84484; 85025; 85610; 85730; 93005; 93306; 94640; 94664; 96374; 96375; 99285; G0378; J1644; J1650; J1815; J2270; J2405; J7030